=== PATIENT | female | born 1995 | race Caucasian/White ===

== ENCOUNTER 2018-01-13 01:21 | Emergency (ER) | payer OTHER ==
[2018-01-13] MEDS: DIPHENHYDRAMINE 50 MG INJ IM (04:19)
[2018-01-13] MEDS: METHYLPREDNISOLONE 125 MG INJ IM (04:20)
== END 2018-01-13 05:05 | disposition home or self-care (01) ==
LOC: FTE 01:21
DX: L50.9 Urticaria, unspecified (principal)
CPT/HCPCS: 96372; 99284-25